=== PATIENT | male | born 1950 | race Caucasian/White ===

== ENCOUNTER 2021-02-18 14:10 | Inpatient (IN) ==
--- NOTE | 2021-02-18 14:19 | Emergency Department Note ---
Male Urogenital HPI General Chief complaint: Urogenital-Male Stated complaint: elevated creatinine, blocked catheter Time Seen by Provider: 02/18/21 14:19 Source: patient Mode of arrival: ambulatory Limitations: no limitations History of Present Illness HPI Narrative: Narrative: Patient is a pleasant 70-year-old male from [place], [place] who presents from [facility] ER by POV with complaint of urinary outlet obstruction. Patient has had complex recent history including finding of acute kidney injury with outlet obstruction requiring nephrostomy tubes which were placed temporarily and then ultimately with current Low catheter drainage. He was inpatient at [facility] from February 05 through February 09 and his creatinine was down to 9.6 with a high of 14. Patient has a prior history of transient A. fib and has been on a apixaban although has not had recurrent episodes of atrial fibrillation. He has been with some degree of anemia. He came back to the emergency department today as he had noted a pain down in his low abdomen 2 days ago and afterward has not had any drainage of urine from the catheter. At [facility] they found greater than the 1000 mL in the bladder. Patient notes bilateral flank moderate discomfort. He has not had any fever. There is not been any hematuria. He had been taking his apixaban up until today. No vomiting no chest pain. He notes itching over his skin which has improved since his creatinine came down. Related Data Home Medications Medication Instructions Recorded Confirmed apixaban 5 mg PO BID 02/18/21 02/18/21 calcium acetate 1,334 mg PO TID 02/18/21 02/18/21 ciprofloxacin HCl [Cipro] 250 mg PO DAILY 02/18/21 02/18/21 diltiazem HCl 240 mg PO QAM 02/18/21 02/18/21 levothyroxine 100 mcg PO QDAY 02/18/21 02/18/21 methocarbamol 500 mg PO Q6HP PRN 02/18/21 02/18/21 metoprolol succinate 100 mg PO QDAY 02/18/21 02/18/21 sodium bicarbonate 1,300 mg PO BID 02/18/21 02/18/21 Allergies Allergy/AdvReac Type Severity Reaction Status Date / Time No Known Drug Allergies Allergy Verified 02/18/21 14:15 Review of Systems ROS ROS Narrative: Narrative: A 10 system review of systems was performed and found to be negative except as outlined above. [facility] Narrative Patient History Narrative: Narrative: Medical/Surgical/Family History All Active Problems (Updated 02/19/21 @ 08:59 by Yogi Hernandez MD) Acute retention of urine (Acute) Acute kidney injury (Acute) Social History Smoking Status: Never smoker Exam Narrative Narrative: Narrative: General: Alert, interactive, pleasant male speaking full sentences without dyspnea HEENT: NCAT, PERRL, Oral pharynx with moist mucus membranes. No pharyngeal erythema. No conjunctival pallor Neck: Supple, No lymphadenopathy Chest: Stable Heart: Regular rate and rhythm without murmur Lungs: Clear to auscultation bilaterally Abdomen: Soft, nontender except with complaint of fullness in the suprapubic area. : Noted bladder distention, Low catheter in place which is without drainage. Back: Nontraumatic, mild bilateral CVA tenderness to palpation. Skin: No rash or lesion Extremity: No cyanosis or edema, pulses 2+ radial Neurologic: Moves all extremities in appropriate coordinated fashion. General Limitations: no limitations Course Vital Signs Vital signs: Vital Signs Temperature 98.1 F 02/18/21 14:11 Pulse Rate 66 02/18/21 14:11 Respiratory Rate 18 02/18/21 14:11 Blood Pressure 123/73 02/18/21 14:11 Pulse Oximetry (%) 99 02/18/21 14:11 Temperature 98.1 F 02/19/21 08:00 Pulse Rate 69 02/19/21 08:00 Respiratory Rate 16 02/19/21 08:00 Blood Pressure 105/59 02/19/21 08:00 Pulse Oximetry (%) 96 02/19/21 08:00 [facility] Narrative Medical decision making narrative: Narrative: I have reviewed the labs from [facility] noting patient's acute kidney injury which is slightly improved since his initial hospitalization almost 2 weeks ago. Patient is with greater than 2000 mL of urine in the bladder. I would consider doing a suprapubic urine catheterization except for his being on apixaban. Dr. Benton has kindly come directly to the emergency department when notified of patient's arrival with plan and discussion of doing further efforts at urine catheterization here in the emergency department. Disposition will be made based on success with procedure and consideration of his ongoing kidney injury. Dr. Benton was successful in placing the catheter. Given patient's elevating BUN and continued high creatinine in the risk of postobstructive diuresis, he will be admitted for further care and treatment with nephrology consultation. Lab Data Result diagrams: 02/19/21 05:46 02/19/21 05:46 ED POC Tests ED POC Tests: [place] - SARS Antigen Negative CC TIME Critical Care Time Critical Care Time: Yes Total Critical Care Time: 45 Attestation: In the care of this patient with acute urinary obstruction and postobstructive renal failure with elevating BUN and creatinine. This time is exclusive of separate billable procedure. Discharge Plan Patient/Caregiver Discharge Instructions Pt seen by [employer]/PA only: No Clinical Impression: Acute kidney injury, Acute retention of urine Patient Disposition: Xfer As Inpt ([facility]) Condition: Serious Discharge Date/Time: 02/18/21 19:54
[2021-02-18] MEDS ORDERED: HYDROmorphone 1 MG/ML SYRINGE IV ONE (15:23)
--- NOTE | 2021-02-18 16:03 | General Surgery Consult Note ---
HPI Data of Consult Consult date: 02/18/21 Primary Care Provider: Avelino Bautista Consult Narrative Patient Information: Note initiated : 02/18/21 at 3:49 pm Service Date, if different from initiated Date: [] Patient: Selwyn Gasca 70 y/o M admitted on for elevated creatinine, blocked catheter. Chief Complaint: [] Chief complaint: Urinary clot retention Reason for consult: Renal failure and transfer from the emergency room [place] cc:: Patient seen for her worsening renal failure and clot retention with Low catheter placement not draining. Patient has had history of chronic bladder outlet obstruction and recently had admission through [facility] for renal failure with bilateral nephrostomy tube placement. Both nephrostomy tubes fell out in the last several days and patient had difficult catheterization with urology at [facility] after finding of catheter being misplaced in the p rostatic urethra. Patient's had gross hematuria and greater than 2000 cc noted in the bladder by bladder scan at [facility] is now transferred for urologic care at [facility]. Patient also has chronic anemia as well as apparently continued blood loss with clot retention with hemoglobin now at 7.2 and creatinine 9.6. Patient now transferred for urologic and nephrologic care emergently EENT Eyes: Present other (Patient has history of head neck cancer last treatment 3 years ago-MYRANDA) Additional comments: History of head neck cancer last chemo radiation treatment 3 years ago and presently MYRANDA on recent PET CT imaging Gastrointestinal Gastrointestinal: Present other (History of chronic BPH) Genitourinary Genitourinary: other (Low catheter in place with no drainage) Additional comments: Bilateral hydronephrosis noted on recent imaging and now status post bilateral nephrostomy tube placement with inadvertent removal MEDS/ALLERGIES Home Medications and Allergies Allergies Allergy/AdvReac Type Severity Reaction Status Date / Time No Known Drug Allergies Allergy Verified 02/18/21 14:15 Physical Examination Vital Signs Vital signs: Temp Pulse Resp BP Pulse Ox 98.1 F 62 18 137/69 100 02/18/21 14:11 02/18/21 15:33 02/18/21 14:11 02/18/21 15:33 02/18/21 15:33 General physical appearance General physical exam: other (Thin white male in moderate distress) Abdomen Abdomen: Present tender (Jonny suprapubic tenderness with enlarged bladder) Genitourinary Genitourinary (Male): Present other (Low in place with no urine in the drainage bag) Musculoskeletal Musculoskeletal: Present other (Moderate CVA tenderness bilaterally) Results Labs Labs: All other labs normal. A/P Narrative A/P Narrative: Assessment: Renal failure with urinary retention likely secondary to clot but likely other etiology of failure BPH with prostate trauma and false passages noted on prior urologic evaluation cystoscopically Anemia questionably secondary to clot retention versus renal failure History of bilateral hydronephrosis and past nephrostomy tube placement no longer present History of chronic anticoagulation secondary to likely atrial fibrillation by history Plan/procedure: Difficult catheterization performed--new catheter placed over wire using [place] tip catheter 22 [place] and small clot removed with greater than 2500 cc urine recovered Patient had 0.5 cc Dilaudid used IV push and tolerated procedure well Light blood-tinged urine noted and will continue to observe for postobstructive diuresis as well as more recurrent clot formation and retention. will initiate IV replacement therapy with half-normal saline Proceed with nephrology consultation Appreciate hospitalist management of this complicated but pleasant medical patient We will continue to follow as needed however at this point no surgical intervention likely pending decompression of upper tracts with Low alone Time Spent With Patient Time: Total time spent is greater than 50% in coordination of care (as documented) at patient's floor/unit and/or counseling patient:
[2021-02-18] MEDS ORDERED: 0.45 % SODIUM CHLORIDE 1,000 ML IV SCH (17:00)
--- NOTE | 2021-02-18 17:12 | Nephrology Consult Note ---
HPI Data of Consult Patient: known to practice within the last 3 years Consult date: 02/18/21 Requesting physician: Basim Benton Primary Care Provider: Avelino Bautista Consult Narrative Patient Information: Note initiated : 02/18/21 at 5:10 pm Patient: Selwyn Gasca 70 y/o M admitted on for elevated creatinine, blocked catheter. 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 He was recently admitted to [facility] (02/05/21 to 02/09/21) for obstructive nephropathy. Low was placed with a flexible bedside cystoscopy by urology. Bilateral nephrostomy was placed on 02/08/21 by IR. There was no significant improvement in renal clearance after nephrostomy tubes. Acute hemodialysis initiation recommended for eGFR ~5 with uremic symptoms. Renal replacement therapy options with risks and benefits discussed. He was aware of very limited life expectancy without hemodialysis. He declined hemodialysis and was discharged home. He presented to ED today for the Low catheter not draining. Both nephrostomy tubes fell out in the last several days. Difficult catheterization performed and new catheter placed by urology. Small clot removed with greater than 2500 cc urine recovered. Chief complaint: Low catheter not draining Reason for consult: Acute kidney injury cc:: CC: Constitutional Constitutional: Present fatigue and weakness EENT Nose, mouth and throat: Absent nasal congestion and sore throat Cardiovascular Cardiovascular: Absent chest pain and edema Respiratory Respiratory: Absent dyspnea and wheezing Gastrointestinal Gastrointestinal: Absent constipation, diarrhea, nausea and vomiting Genitourinary Genitourinary: difficulty urinating and hematuria Integumentary Integumentary: Absent rash and wounds Neurological Neurological: Present weakness; Absent confusion Psychiatric Psychiatric: Absent anxiety and panic attacks Hematologic/Lymphatic Hematologic/Lymphatic: Absent easy bleeding Allergic/Immunologic Allergic/Immunologic: Absent tongue swelling and uticaria PFSH PFSH All Active Problems (Updated 02/18/21 @ 17:11 by Sundeep Soliman MD) Acute kidney injury (Acute) MEDS/ALLERGIES Home Medications and Allergies Home Medications Medication Instructions Recorded Confirmed Type apixaban 5 mg PO BID 02/18/21 02/18/21 History calcium acetate 1,334 mg PO TID 02/18/21 02/18/21 History diltiazem HCl 240 mg PO QAM 02/18/21 02/18/21 History levothyroxine 50 mcg PO QDAY 02/18/21 02/18/21 History metoprolol tartrate 100 mg PO BID 02/18/21 02/18/21 History prednisone 20 mg PO QDAY 02/18/21 02/18/21 History sodium bicarbonate 1,300 mg PO BID 02/18/21 02/18/21 History Allergies Allergy/AdvReac Type Severity Reaction Status Date / Time No Known Drug Allergies Allergy Verified 02/18/21 14:15 Physical Examination Vital Signs Vital signs: Temp Pulse Resp BP Pulse Ox 98.1 F 70 18 149/57 99 02/18/21 14:11 02/18/21 16:02 02/18/21 14:11 02/18/21 16:32 02/18/21 16:02 General Appearance General appearance: chronically ill and fatigue EENT EENT: mucous membranes moist Neck Neck: no JVD Respiratory Respiratory: clear Cardiovascular Cardiology: no edema, regular rate and regular rhythm Gastrointestinal Gastrointestinal: no tenderness Integumentary Integumentary: no rash Neurologic Neurologic: no focal deficit and alert and oriented x3 Musculoskeletal Musculoskeletal: no deformities Psychiatric Psychiatric: mood/affect appropriate and cooperative A/P Assessment and plan (1) Acute kidney injury: Assessment and plan: Selwyn Gasca is a 70-year-old male with a 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 He was recently admitted to [facility] (02/05/21 to 02/09/21) for obstructive nephropathy. Low was placed with a flexible bedside cystoscopy by urology. Bilateral nephrostomy was placed on 02/08/21 by IR. There was no significant improvement in renal clearance after nephrostomy tubes. Acute hemodialysis initiation recommended for eGFR ~5 with uremic symptoms. Renal replacement therapy options with risks and benefits discussed. He was aware of very limited life expectancy without hemodialysis. He declined hemodialysis and was discharged home. He presented to ED today for the Low catheter not draining. Both nephrostomy tubes fell out in the last several days. Difficult catheterization performed and new catheter placed by urology. Small clot removed with greater than 2500 cc urine recovered. Acute kidney injury associated with severe bilateral hydronephrosis (recurrent episodes), suspected progression to chronic kidney disease, even end stage renal disease. Previous work up: Labs on 02/12/12: Serum sodium 138, potassium 4.6, CO2 22, creatinine 9.75, eGFR 5, calcium 6.6, albumin 3.2. Labs on 02/09/21: Serum sodium 138, potassium 4.6, CO2 19, creatinine 9.6, eGFR 5, calcium 6.2. Renal US on 02/07/21: There is massive hydronephrosis bilaterally. Labs on 02/06/21: Hemoglobin 7.9, TIBC 48%, ferritin 648. Labs on 02/05/21: Urinalysis yellow, turbid, pH 5.0, SG 1.009, protein 100, blood >1.0, leukocyte esterase 500. Recommendations/Plan: Monitor for acute hemodialysis need. Avoid NSAIDs, nephrotoxic medications and IV contrast. Monitor BMP and urine output. Status: Acute Time Spent With Patient Time: Total time spent is greater than 50% in coordination of care (as documented) at patient's floor/unit and/or counseling patient:
--- NOTE | 2021-02-18 17:27 | Internal Medicine Consult Note ---
HPI Data of Consult Primary Care Provider: Avelino Buatista Consult Narrative Patient Information: Note initiated : 02/18/21 at 5:15 pm Service Date, if different from initiated Date: [] Patient: Selwyn Gasca 70 y/o M admitted on for elevated creatinine, blocked catheter. Chief Complaint: [] cc:: CC: Patient sent in from [place] for urinary obstruction. Sounds like he had a clotted off Berkowitz catheter and subsequent required urostomy tubes which fell out a few days ago resulting in clotted Berkowitz catheter again and urinary tension at which time he came back to the ED and was transferred to [facility] with Dr. Benton placed a Berkowitz catheter with good urine output. See Dr. Benton's note for details of this history. He was also seen at [facility] by the fitness coach for creatinine that has been elevated around 9 for some time he has anemia has been relatively stable. The last hemoglobin is 8.0 on February 11. 7.2 today. He does have gross hematuria. Review of Systems: Pertinent positive as above. Denies headache/fever/chills/nausea/vomiting/chest or abdominal pain/cough/dyspnea/diarrhea. Many 10 point review of system reviewed negative PFSH PFSH All Active Problems (Updated 02/18/21 @ 17:11 by Sundeep Soliman MD) Acute kidney injury (Acute) MEDS/ALLERGIES Home Medications and Allergies Home Medications Medication Instructions Recorded Confirmed Type apixaban 5 mg PO BID 02/18/21 02/18/21 History calcium acetate 1,334 mg PO TID 02/18/21 02/18/21 History diltiazem HCl 240 mg PO QAM 02/18/21 02/18/21 History levothyroxine 50 mcg PO QDAY 02/18/21 02/18/21 History metoprolol tartrate 100 mg PO BID 02/18/21 02/18/21 History prednisone 20 mg PO QDAY 02/18/21 02/18/21 History sodium bicarbonate 1,300 mg PO BID 02/18/21 02/18/21 History Allergies Allergy/AdvReac Type Severity Reaction Status Date / Time No Known Drug Allergies Allergy Verified 02/18/21 14:15 EXAM Constitutional Vitals: Temp Pulse Resp BP Pulse Ox 98.1 F 70 18 149/57 99 02/18/21 14:11 02/18/21 16:02 02/18/21 14:11 02/18/21 16:32 02/18/21 16:02 Exam: General: Alert, Awake, No acute Distress Eyes/N/T: EOMI, PERRL, Head/Neck: neck supple, normocephalic atraumatic CV: RRR, No murmurs, normal s1/s2 Pulm: Clear b/l, no wheezing/rhonchi/rales Abd: soft, nontender, +BS x4 : Berkowitz in place with gross hematuria Ext: no clubbing/cyanosis/edema Neuro: Alert, no focal deficits, moves all extremities, CN 2-12 grossly intact, symmetrical strength b/l upper/lower, sensations intact b/l upper/lower Skin: warm/dry A/P Narrative A/P Narrative: A: *Obstructive uropathy and b/l hydronephrosis: 2/2 clots, recent nephrostomy tube fell out -BPH with subsequent prostate trauma *Gross hematuria with blood clots: was on apixaban *Blood loss (mild) anemia from above plus likely chronic component from renal failure: -Anemia work-up at [facility] indicates anemia of chronic disease -relatively stable, was 8 February 11, now 7.2 *Renal Failure: 2/2 above *Afib: on dilt/bb and was on apixaban that has been held for above *HTN: *Hypothyroidism: last labs quite high TSH and low T4, ?levothyroxine increased from 50-100 at [facility] * P: -Obstructive uropathy per urology, s/p berkowitz replacement (02/18) -renal failure per nephrology -will check b12/folate -hold apixaban for now -continue levothyroxine, will need f/u and likely titration up outpt -blood transfusion, monitor H&H -cont nicko dilt/bb -?prednisone on home meds -clarify home meds -ppx: scd DNR Time Spent With Patient Time: Total time spent is greater than 50% in coordination of care (as documented) at patient's floor/unit and/or counseling patient:
[2021-02-18] MEDS ORDERED: 0.9 % SODIUM CHLORIDE 250 ML IV SCH (20:03)
[2021-02-18] MEDS ORDERED: DILTIAZEM 240 MG CAP.XL.24H PO ONE (20:03)
[2021-02-18] MEDS ORDERED: METOPROLOL TARTRATE 5 MG/5 ML VIAL IV PRN (20:12)
[2021-02-18] MEDS: 0.45 % SODIUM CHLORIDE 1,000 ML IV SCH (20:29)
[2021-02-18] MEDS: METOPROLOL TARTRATE 50 MG TABLET PO SCH (20:41)
[2021-02-18] MEDS: SODIUM BICARBONATE 650 MG TABLET PO SCH (20:41)
[2021-02-18] MEDS: CALCIUM ACETATE 667 MG CAPSULE PO SCH (20:41)
[2021-02-19] MEDS: 0.45 % SODIUM CHLORIDE 1,000 ML IV SCH ×4 (01:43→19:39)
--- NOTE | 2021-02-19 04:06 | Ultrasound Report ---
CLINICAL INFORMATION: renal failure with hx bilateral hydronephrosis COMPARISON: 02/07/2021 FINDINGS: Both kidneys are normal in size position and configuration: The right is 12.4 x 4.9 cm. The left is 12 x 6.6 cm. Echotexture is mildly elevated bilaterally. No focal renal lesions. Severe bilateral hydronephrosis is persistent. Urinary bladder is decompressed by Low catheter. The bladder stone, seen on recent ultrasound is not identified. However, there appears to be marked prostate enlargement with possible mass originating from or adjacent to the prostate IMPRESSION: Severe bilateral hydronephrosis despite Low catheter decompression of the urinary bladder. There is either atypical prostate enlargement or adjacent vascular mass. Suggest: abdomen and pelvic CT. It could be performed without contrast. Creatinine is elevated Interpreted and Authenticated by: Ishaan Pascal 02/19/21
[2021-02-19 06:58] LABS: Basophils # (Auto) 0.08 K/mcL (0.00-0.20); Basophils % (Auto) 0.9 % (0.0-2.0); Eosinophils # (Auto) 1.23 K/mcL (0.00-0.70); Eosinophils % (Auto) 13.2 % (0.0-7.0); Hematocrit 26.6 % (41.0-55.0); Hemoglobin 8.4 g/dL (13.5-16.5); Lymphocytes # (Auto) 0.44 K/mcL (1.50-4.80); Lymphocytes % (Auto) 4.7 % (15.0-49.0); Mean Cell Volume 99.3 fL (80.0-100.0); Mean Corpuscular HGB Conc 31.6 g/dL (31.0-36.0); Mean Platelet Volume 8.9 fL (7.4-10.4); Monocytes # (Auto) 0.91 K/mcL (0.10-0.90); Monocytes % (Auto) 9.8 % (1.0-12.0); Neutrophils % (Auto) 71.4 % (38.0-78.0); Platelet Count 339 K/mcL (140-440); RBC 2.68 M/mcL (4.50-5.90); Red Cell Distribution Width 15.7 % (11.5-14.5); WBC 9.3 K/mcL (4.5-11.0)
[2021-02-19] MEDS: LEVOTHYROXINE 50 MCG TABLET PO SCH (07:12)
--- NOTE | 2021-02-19 07:27 | Internal Med Progress Note ---
SUBJECTIVE Subjective Patient information: Note initiated : 02/19/21 at 7:24 am Service Date, if different from initiated Date: [] Patient: Selwyn Gasca 70 y/o M admitted on 02/18/21 for elevated creatinine, blocked catheter. Chief Complaint: [] Interval history: Patient sent in from [place] for urinary obstruction. Sounds like he had a clotted off Berkowitz catheter and subsequent required urostomy tubes which fell out a few days ago resulting in clotted Berkowitz catheter again and urinary tension at which time he came back to the ED and was transferred to [facility] with Dr. Benton placed a Berkowitz catheter with good urine output. See Dr. Benton's note for details of this history. He was also seen at [facility] by the sports medicine coordinator for creatinine that has been elevated around 9 for some time he has anemia has been relatively stable. The last hemoglobin is 8.0 on February 11. 7.2 today. He does have gross hematuria. 02/19 No overnight event or new complaints. Patient was recently diagnosed with hypothyroidism at [facility] and started on 100 mcg of levothyroxine. Review of Systems: denies headache/fever/chills/nausea/vomiting/chest or abdominal pain/cough/dyspnea/diarrhea. Otherwise see above. Constitutional Vitals: Vital Signs Temp Pulse Resp BP Pulse Ox 98.1 F 53 L 16 107/63 98 02/19/21 01:53 02/19/21 01:53 02/19/21 01:53 02/19/21 01:53 02/19/21 01:53 Period Temp Pulse Resp BP Sys/Gomes Pulse Ox Last 24 Hr 98.0 F-98.4 F 52-70 16-18 107-149/57-73 97-100 Intake and Output 02/18/21 02/19/21 02/19/21 21:59 05:59 13:59 Intake Total 277 1169 483 Output Total 2950 825 Balance -2673 344 483 Weight 74.446 kg Intake & Output: Intake & Output 02/18/21 02/19/21 02/19/21 21:59 05:59 13:59 Intake Total 277 1169 483 Output Total 2950 825 Balance -2673 344 483 Weight 74.446 kg Intake: IV 277 864 483 Sodium Chloride 0.45% 1,000 ml 277 839 483 @ 100 mls/hr IV .Q10H [facility] Rx#: [id number] Sodium Chloride 0.9% 250 ml @ 25 20 mls/hr IV .[id number] [facility] Rx#: [id number] Blood Product 305 Output: Urine Catheter Amount 1860 825 Other: Urine Appearance Clear Hematuria Hematuria Urine Color Blood Tinged [place] Exam: General: Alert, Awake, No acute Distress Eyes/N/T: EOMI, , Head/Neck: neck supple, CV: RRR, No murmurs, normal s1/s2 Pulm: Clear b/l, no wheezing/rhonchi/rales Abd: soft, nontender, +BS x4 : Berkowitz in place Ext: no clubbing/cyanosis/edema Neuro: Alert, no focal deficits, moves all extremities, Skin: warm/dry OBJ DATA Labs CBC & Chem 7: 02/19/21 05:46 02/19/21 05:46 Labs: Abnormal Lab Results 02/19/21 05:46 RBC 2.68 L Hgb 8.4 L Hct 26.6 L RDW 15.7 H Lymph % (Auto) 4.7 L Eos % (Auto) 13.2 H Lymph # (Auto) 0.44 L [place] # (Auto) 0.91 H Eos # (Auto) 1.23 H Meds: Medications Calcium Acetate (Calcium Acetate 667 Mg Capsule) 1,334 mg PO TIDCC [facility] Last Admin: 02/18/21 20:41 Dose: 1,334 mg Documented by: Sodium Chloride (Sodium Chloride 0.45%) 1,000 mls @ 100 mls/hr IV .Q10H [facility] Last Admin: 02/19/21 06:56 Dose: 175 mls/hr Documented by: Sodium Chloride (Sodium Chloride 0.9%) 250 mls @ 20 mls/hr IV .[id number] [facility] Stop: 02/19/21 08:32 Last Infusion: 02/19/21 01:43 Dose: Infused Documented by: Levothyroxine Sodium (Levothyroxine 50 Mcg Tablet) 100 mcg PO QAMAC [facility] Last Admin: 02/19/21 07:12 Dose: 100 mcg Documented by: Metoprolol Tartrate (Metoprolol Tartrate 50 Mg Tablet) 100 mg PO BID [facility] Last Admin: 02/18/21 20:41 Dose: 100 mg Documented by: Metoprolol Tartrate (Metoprolol Tartrate 5 Mg/5 Ml Vial) 5 mg IV Q2HP PRN PRN Reason: Tachyarrhythmias HR>110 Sodium Bicarbonate (Sodium Bicarbonate 650 Mg Tablet) 1,300 mg PO BID [facility] Last Admin: 02/18/21 20:41 Dose: 1,300 mg Documented by: A/P Narrative A/P Narrative: A: *Obstructive uropathy and b/l hydronephrosis: 2/2 clots, recent nephrostomy tube fell out -BPH with subsequent prostate trauma *Gross hematuria with blood clots: was on apixaban -improved *Blood loss (mild) anemia from above plus likely chronic component from renal failure: -Anemia work-up at [facility] indicates anemia of chronic disease -relatively stable, was 8 February 11, now 7.2 -good response from 1 unit PRBC (02/18) *Renal Failure: 2/2 above -Cr no change *Afib: on dilt/bb and was on apixaban that has been held for above *HTN: *Hypothyroidism: recently diagnosed at [facility] and started on levothyroxine 100mcg * P: -Obstructive uropathy s/p berkowitz replacement (02/18), per urology -renal failure per nephrology -will check b12/folate -apixaban held for now -continue levothyroxine, will need f/u and likely titration up outpt -monitor H&H -hold dilt/bb for mild bradycardia -ppx: scd DNR Time Spent With Patient Time: Total time spent is greater than 50% in coordination of care (as documented) at patient's floor/unit and/or counseling patient: QUALITY VTE Deep Vein Thrombosis/Pulmonary Embolism Present on Admission: No
--- NOTE | 2021-02-19 07:56 | General Surgery Progress Note ---
SUBJECTIVE Subjective Patient information: Note initiated : 02/19/21 at 7:52 am Service Date, if different from initiated Date: [] Patient: Selwyn Gasca 70 y/o M admitted on 02/18/21 for elevated creatinine, blocked catheter. Chief Complaint: [] Interval history: Patient presently doing well and eating in no distress Constitutional Vitals: Vital Signs Temp Pulse Resp BP Pulse Ox 98.1 F 53 L 16 107/63 98 02/19/21 01:53 02/19/21 01:53 02/19/21 01:53 02/19/21 01:53 02/19/21 01:53 Period Temp Pulse Resp BP Sys/Gomes Pulse Ox Last 24 Hr 98.0 F-98.4 F 52-70 16-18 107-149/57-73 97-100 Intake and Output 02/18/21 02/19/21 02/19/21 21:59 05:59 13:59 Intake Total 277 1169 483 Output Total 2950 825 Balance -2673 344 483 Weight 164 lb 2 oz Intake & Output: Intake & Output 02/18/21 02/19/21 02/19/21 21:59 05:59 13:59 Intake Total 277 1169 483 Output Total 2950 825 Balance -2673 344 483 Weight 164 lb 2 oz Intake: IV 277 864 483 Sodium Chloride 0.45% 1,000 ml 277 839 483 @ 100 mls/hr IV .Q10H [facility] Rx#: [id number] Sodium Chloride 0.9% 250 ml @ 25 20 mls/hr IV .[id number] [facility] Rx#: [id number] Blood Product 305 Output: Urine Catheter Amount 2950 825 Other: Urine Appearance Clear Hematuria Hematuria Urine Color Blood Tinged [place] Additional findings Additional findings: Patient alert and cooperative afebrile Chest normal diaphragmatic excursion with no shortness of breath Cardiac palpably normal rhythm Abdomen nontender nondistended with no CVA tenderness Low catheter in place draining clear urine No pedal edema noted A/P Narrative A/P Narrative: Assessment: Renal failure questionably stable and awaiting a.m. repeat creatinine level as well as thyroid and vitamin B12 levels Anemia improved with hemoglobin 8.4 this a.m. Comfortable with no cardiac arrhythmias noted overnight off anticoagulation Plan: Await hospitalist and nephrology evaluation this morning and question proceeding with repeat imaging based on ultrasound showing dramatic bilateral hydronephrosis and questionable bladder base mass Consider cystoscopy pending clinical status Continue fluid management with urine replacement and hopefully overall replacement without IV if maintained stability Time Spent With Patient Time: Total time spent is greater than 50% in coordination of care (as documented) at patient's floor/unit and/or counseling patient:
[2021-02-19] MEDS ORDERED: predniSONE 20 MG TABLET PO SCH (08:00)
[2021-02-19] MEDS: SODIUM BICARBONATE 650 MG TABLET PO SCH ×2 (08:19→21:41)
[2021-02-19] MEDS: CALCIUM ACETATE 667 MG CAPSULE PO SCH ×3 (08:19→17:22)
[2021-02-19] MEDS: METOPROLOL TARTRATE 50 MG TABLET PO SCH ×2 (08:19→21:46)
[2021-02-19 08:24] LABS: Free T3 0.9 pg/mL (2.0-4.4); T4 (Thyroxine) 2.7 ug/dl (5.0-12.0); Thyroid Stimulating Hormone > 100 uIU/mL (0.27-5.01)
[2021-02-19 08:53] LABS: ALT/SGPT 14 U/L (<40); AST/SGOT 13 U/L (<40); Albumin 3.3 gm/dL (3.2-5.2); Albumin/Globulin Ratio 1.3 (1.0-2.3); Alkaline Phosphatase 46 U/L (39-117); Bilirubin,Total 0.4 mg/dL (0.1-1.0); Blood Urea Nitrogen 108 mg/dL (8-23); Calcium 6.3 mg/dL (8.6-10.4); Carbon Dioxide 23 mmol/L (22-30); Chloride 104 mmol/L (96-108); Globulin 2.6 gm/dL (2.2-3.7); Glomerular Filtration Rate 5; Glucose 70 mg/dL (70-105)
[2021-02-19] MEDS ORDERED: METHOCARBAMOL 500 MG TABLET PO PRN (09:02)
--- NOTE | 2021-02-19 09:35 | EKG ---
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 Measurements Intervals [place] Rate: 46 P: 49 ND: 196 QRS: 29 QRSD: 86 T: 19 QT: 532 QTc: 466 Interpretive Statements SINUS BRADYCARDIA LOW VOLTAGE IN FRONTAL LEADS CONSIDER ANTEROSEPTAL INFARCT Electronically Signed On 02-19-2021 13:16:34 PDT by Akhil Chand M.D. /[email or web address]/[email or web address]/[id number]
--- NOTE | 2021-02-19 09:38 | Nephrology Progress Note ---
SUBJECTIVE Subjective Patient information: Note initiated : 02/19/21 at 9:37 am Patient: Selwyn Gasca 70 y/o M admitted on 02/18/21 for elevated creatinine, blocked catheter. Chief Complaint: Low catheter not draining Pertinent ROS: Feeling better Low catheter Denies nausea or hiccups Constitutional Vitals: Vital Signs Temp Pulse Resp BP Pulse Ox 98.1 F 69 16 105/59 96 02/19/21 08:00 02/19/21 08:00 02/19/21 08:00 02/19/21 08:00 02/19/21 08:00 Period Temp Pulse Resp BP Sys/Gomes Pulse Ox Last 24 Hr 98.0 F-98.4 F 52-70 16-18 105-149/57-73 96-100 Intake and Output 02/18/21 02/19/21 02/19/21 21:59 05:59 13:59 Intake Total 277 1169 871 Output Total 2950 825 400 Balance -2673 344 471 Weight 164 lb 2 oz Intake & Output: Intake & Output 02/18/21 02/19/21 02/19/21 21:59 05:59 13:59 Intake Total 277 1169 871 Output Total 2950 825 400 Balance -2673 344 471 Weight 164 lb 2 oz Intake: IV 277 864 751 Sodium Chloride 0.45% 1,000 ml 277 839 751 @ 100 mls/hr IV .Q10H [facility] Rx#: [id number] Sodium Chloride 0.9% 250 ml @ 25 20 mls/hr IV .[id number] [facility] Rx#: [id number] Oral 120 Blood Product 305 Output: Urine Catheter Amount 2950 825 400 Other: Meal Breakfast Percent of Meal Consumed 100% Feeding Ability Independent Urine Appearance Clear Hematuria Clear Hematuria Urine Color Blood Tinged [place] Pale General appearance: cooperative and no acute distress Head Head exam: Present normal inspection Eye Eye exam: Present normal appearance ENT ENT exam: Present mucous membranes moist Respiratory Respiratory exam: Absent respiratory distress Cardiovascular Cardiovascular exam: Present normal rate and rhythm GI/Abdominal GI/Abdominal exam: Present soft; Absent tenderness Extremities Exam Extremities exam: Absent joint swelling and pedal edema Neurological Exam Neurological exam: Present alert and oriented X3 Psychiatric Psychiatric exam: Present normal affect and normal mood Skin Skin exam: Present warm; Absent rash A/P Assessment and plan (1) Acute kidney injury: Assessment and plan: Selwyn Gasca is a 70-year-old male with a 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 He was recently admitted to [facility] (02/05/21 to 02/09/21) for obstructive nephropathy. Low was placed with a flexible bedside cystoscopy by urology. Bilateral nephrostomy was placed on 02/08/21 by IR. There was no significant improvement in renal clearance after nephrostomy tubes. Acute hemodialysis initiation recommended for eGFR ~5 with uremic symptoms. Renal replacement thera py options with risks and benefits discussed. He was aware of very limited life expectancy without hemodialysis. He declined hemodialysis and was discharged home. He presented to [facility] ED on 02/18/21 for the Low catheter not draining. Both nephrostomy tubes fell out since discharge from [facility]. Difficult catheterization performed and new catheter placed by urology in ED. Small clot removed with greater than 2500 cc urine recovered and he is admitted. Acute kidney injury associated with severe bilateral hydronephrosis (recurrent episodes), suspected progression to chronic kidney disease, even end stage renal disease. Previous work up: Labs on 02/12/12: Serum sodium 138, potassium 4.6, CO2 22, creatinine 9.75, eGFR 5, calcium 6.6, albumin 3.2. Labs on 02/09/21: Serum sodium 138, potassium 4.6, CO2 19, creatinine 9.6, eGFR 5, calcium 6.2. Renal US on 02/07/21: There is massive hydronephrosis bilaterally. Labs on 02/06/21: Hemoglobin 7.9, TIBC 48%, ferritin 648. Labs on 02/05/21: Urinalysis yellow, turbid, pH 5.0, SG 1.009, protein 100, blood >1.0, leukocyte esterase 500. Work up: Renal US on 02/18/21: Severe bilateral hydronephrosis despite Low catheter decompression of the urinary bladder. Progress: Serum creatinine decreased from 9.6 to 9.7 to 9.2 overnight. Baseline serum creatinine: Urine output: 3,775 ml reported overnight. No fluid overload. No significant uremic symptoms. Recommendations/Plan: No urgent acute hemodialysis need. Avoid NSAIDs, nephrotoxic medications and IV contrast. Monitor BMP and urine output. Status: Acute Time Spent With Patient Time: Total time spent is greater than 50% in coordination of care (as documented) at patient's floor/unit and/or counseling patient:
[2021-02-19] MEDS ORDERED: METOPROLOL TARTRATE 50 MG TABLET PO SCH (21:49)
[2021-02-20] MEDS: 0.45 % SODIUM CHLORIDE 1,000 ML IV SCH ×2 (02:33→07:21)
[2021-02-20] MEDS: METOPROLOL TARTRATE 50 MG TABLET PO SCH (06:35)
[2021-02-20] MEDS: LEVOTHYROXINE 50 MCG TABLET PO SCH (07:14)
--- NOTE | 2021-02-20 07:16 | Internal Med Progress Note ---
SUBJECTIVE Subjective Patient information: Note initiated : 02/20/21 at 7:13 am Service Date, if different from initiated Date: [] Patient: Selwyn Gasca 70 y/o M admitted on 02/18/21 for elevated creatinine, blocked catheter. Chief Complaint: [] Interval history: Patient sent in from [place] for urinary obstruction. Sounds like he had a clotted off Berkowitz catheter and subsequent required urostomy tubes which fell out a few days ago resulting in clotted Berkowitz catheter again and urinary tension at which time he came back to the ED and was transferred to [facility] with Dr. Benton placed a Berkowitz catheter with good urine output. See Dr. Benton's note for details of this history. He was also seen at [facility] by the credit office manager for creatinine that has been elevated around 9 for some time he has anemia has been relatively stable. The last hemoglobin is 8.0 on February 11. 7.2 today. He does have gross hematuria. 02/19 No overnight event or new complaints. Patient was recently diagnosed with hypothyroidism at [place] and started on 100 mcg of levothyroxine. 02/20 Doing well. No pains or complaints. Pending a.m. labs. Review of Systems: denies headache/fever/chills/nausea/vomiting/chest or abdominal pain/cough/dyspnea/diarrhea. Otherwise see above. Constitutional Vitals: Vital Signs Temp Pulse Resp BP Pulse Ox 98.6 F 54 L 12 116/62 98 02/20/21 02:41 02/20/21 04:55 02/20/21 04:55 02/20/21 04:55 02/20/21 04:55 Period Temp Pulse Resp BP Sys/Gomes Pulse Ox Last 24 Hr 97.8 F-98.6 F 50-69 12-20 105-129/48-62 96-100 Intake and Output 02/19/21 02/20/21 02/20/21 21:59 05:59 13:59 Intake Total 1065 1340 Output Total 575 750 Balance 490 590 Weight 78.698 kg 77.292 kg Intake & Output: Intake & Output 02/19/21 02/20/21 02/20/21 21:59 05:59 13:59 Intake Total 1065 1340 Output Total 575 750 Balance 490 590 Weight 78.698 kg 77.292 kg Intake: IV 1065 990 Sodium Chloride 0.45% 1,000 ml 1065 990 @ 100 mls/hr IV .Q10H [facility] Rx#: [id number] Oral 350 Output: Urine Catheter Amount 575 750 Other: Urine Appearance Clear Clear Urine Color Straw Straw Stool Size Large Stool Color Brown Stool Consistency Formed Loose Exam: General: Alert, Awake, No acute Distress Eyes/N/T: EOMI, , Head/Neck: neck supple, CV: RRR, No murmurs, normal s1/s2 Pulm: Clear b/l, no wheezing/rhonchi/rales Abd: soft, nontender, +BS x4 : Berkowitz in place Ext: no clubbing/cyanosis/edema Neuro: Alert, no focal deficits, moves all extremities, Skin: warm/dry OBJ DATA Labs CBC & Chem 7: 02/20/21 06:21 02/19/21 05:46 Labs: Abnormal Lab Results 02/19/21 02/19/21 05:46 05:46 RBC 2.68 L Hgb 8.4 L Hct 26.6 L RDW 15.7 H Lymph % (Auto) 4.7 L Eos % (Auto) 13.2 H Lymph # (Auto) 0.44 L [place] # (Auto) 0.91 H Eos # (Auto) 1.23 H BUN 108 H* Creatinine 9.2 H* Calcium 6.3 L TSH > 100 H Thyroxine (T4) 2.7 L Free T3 pg/mL 0.9 L Meds: Medications Calcium Acetate (Calcium Acetate 667 Mg Capsule) 1,334 mg PO TIDCC [facility] Last Admin: 02/19/21 17:22 Dose: 1,334 mg Documented by: Sodium Chloride (Sodium Chloride 0.45%) 1,000 mls @ 100 mls/hr IV .Q10H [facility] Last Infusion: 02/20/21 03:58 Dose: 250 mls/hr Documented by: Levothyroxine Sodium (Levothyroxine 50 Mcg Tablet) 100 mcg PO QAMAC [facility] Last Admin: 02/19/21 07:12 Dose: 100 mcg Documented by: Methocarbamol (Methocarbamol 500 Mg Tablet) 500 mg PO Q6HP PRN PRN Reason: Muscle Spasm Metoprolol Tartrate (Metoprolol Tartrate 5 Mg/5 Ml Vial) 5 mg IV Q2HP PRN PRN Reason: Tachyarrhythmias HR>110 Metoprolol Tartrate (Metoprolol Tartrate 50 Mg Tablet) 100 mg PO BID [facility] Sodium Bicarbonate (Sodium Bicarbonate 650 Mg Tablet) 1,300 mg PO BID [facility] Last Admin: 02/19/21 21:41 Dose: 1,300 mg Documented by: A/P Narrative A/P Narrative: A: *Obstructive uropathy and b/l hydronephrosis: 2/2 clots, recent nephrostomy tube fell out -BPH with subsequent prostate trauma *Gross hematuria with blood clots: was on apixaban -improved *Blood loss (mild) anemia from above plus likely chronic component from renal failure: -Anemia work-up at [facility] indicates anemia of chronic disease -relatively stable, was 8 February 11, now 7.2 -good response from 1 unit PRBC (02/18) *Renal Failure: 2/2 above -Cr *PAF: currently in sinus valentino -on dilt/bb. was on apixaban that has been held for above *HTN: *Hypothyroidism: recently diagnosed at [facility] and started on levothyroxine 100mcg * P: -Obstructive uropathy s/p berkowitz replacement (02/18), per urology -renal failure per nephrology -apixaban restart tomorrow -continue levothyroxine, will need f/u and likely titration up outpt -hold dilt/bb for mild bradycardia, -ppx: scd DNR Time Spent With Patient Time: Total time spent is greater than 50% in coordination of care (as docu mented) at patient's floor/unit and/or counseling patient: QUALITY VTE Deep Vein Thrombosis/Pulmonary Embolism Present on Admission: No
[2021-02-20 07:53] LABS: Basophils # (Auto) 0.07 K/mcL (0.00-0.20); Basophils % (Auto) 0.9 % (0.0-2.0); Eosinophils % (Auto) 15.1 % (0.0-7.0); Hematocrit 26.3 % (41.0-55.0); Lymphocytes # (Auto) 0.48 K/mcL (1.50-4.80); Mean Cell Volume 105.2 fL (80.0-100.0); Mean Corpuscular HGB Conc 30.4 g/dL (31.0-36.0); Mean Platelet Volume 8.7 fL (7.4-10.4); Monocytes # (Auto) 0.75 K/mcL (0.10-0.90); Monocytes % (Auto) 9.4 % (1.0-12.0); Neutrophils % (Auto) 68.6 % (38.0-78.0); Platelet Count 301 K/mcL (140-440); Red Cell Distribution Width 15.4 % (11.5-14.5); WBC 7.9 K/mcL (4.5-11.0)
[2021-02-20 08:11] LABS: ALT/SGPT 12 U/L (<40); AST/SGOT 13 U/L (<40); Albumin 2.9 gm/dL (3.2-5.2); Albumin/Globulin Ratio 1.2 (1.0-2.3); Alkaline Phosphatase 43 U/L (39-117); Bilirubin,Total 0.2 mg/dL (0.1-1.0); Blood Urea Nitrogen 102 mg/dL (8-23); Calcium 5.9 mg/dL (8.6-10.4); Carbon Dioxide 18 mmol/L (22-30); Chloride 104 mmol/L (96-108); Globulin 2.4 gm/dL (2.2-3.7); Glomerular Filtration Rate 6; Glucose 74 mg/dL (70-105)
--- NOTE | 2021-02-20 08:25 | Nephrology Progress Note ---
SUBJECTIVE Subjective Patient information: Note initiated : 02/20/21 at 8:23 am Patient: Selwyn Gasca 70 y/o M admitted on 02/18/21 for elevated creatinine, blocked catheter. Chief Complaint: Low not draining Pertinent ROS: No nausea No hiccups No edema feeling better Constitutional Vitals: Vital Signs Temp Pulse Resp BP Pulse Ox 98.6 F 54 L 12 116/62 98 02/20/21 02:41 02/20/21 04:55 02/20/21 04:55 02/20/21 04:55 02/20/21 04:55 Period Temp Pulse Resp BP Sys/Gomes Pulse Ox Last 24 Hr 97.8 F-98.6 F 50-54 12-20 105-129/48-62 97-100 Intake and Output 02/19/21 02/20/21 02/20/21 21:59 05:59 13:59 Intake Total 1065 1340 823 Output Total 575 750 Balance 490 590 823 Weight 173 lb 8 oz 170 lb 6.4 oz Intake & Output: Intake & Output 02/19/21 02/20/21 02/20/21 21:59 05:59 13:59 Intake Total 1065 1340 823 Output Total 575 750 Balance 490 590 823 Weight 173 lb 8 oz 170 lb 6.4 oz Intake: IV 1065 990 823 Sodium Chloride 0.45% 1,000 ml 1065 990 823 @ 100 mls/hr IV .Q10H [facility] Rx#: [id number] Oral 350 Output: Urine Catheter Amount 575 750 Other: Urine Appearance Clear Clear Urine Color Straw Straw Stool Size Large Stool Color Brown Stool Consistency Formed Loose General appearance: cooperative and no acute distress Head Head exam: Present normal inspection Eye Eye exam: Present normal appearance ENT ENT exam: Present mucous membranes moist Respiratory Respiratory exam: Absent respiratory distress Cardiovascular Cardiovascular exam: Present normal rate and rhythm GI/Abdominal GI/Abdominal exam: Present soft; Absent tenderness Extremities Exam Extremities exam: Absent joint swelling and pedal edema Neurological Exam Neurological exam: Present alert and oriented X3 Psychiatric Psychiatric exam: Present normal affect and normal mood Skin Skin exam: Present warm; Absent rash A/P Assessment and plan (1) Acute kidney injury: Assessment and plan: Selwyn Gasca is a 70-year-old male with a 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 He was recently admitted to [facility] (02/05/21 to 02/09/21) for obstructive nephropathy. Low was placed with a flexible bedside cystoscopy by urology. Bilateral nephrostomy was placed on 02/08/21 by IR. There was no significant improvement in renal clearance after nephrostomy tubes. Acute hemodialysis initiation recommended for eGFR ~5 with uremic symptoms. Renal replacement therapy options with risks and benefits discussed. He was aware of very limited life expectancy without hemodialysis. He declined hemodialysis and was discharged home. He presented to [facility] ED on 02/18/21 for the Low catheter not draining. Both nephrostomy tubes fell out since discharge from [facility]. Difficult catheterization performed and new catheter placed by urology in ED. Small clot removed with greater than 2500 cc urine recovered and he is admitted. Acute kidney injury associated with severe bilateral hydronephrosis (recurrent episodes), suspected progression to chronic kidney disease, even end stage renal disease. Previous work up: Labs on 02/12/12: Serum sodium 138, potassium 4.6, CO2 22, creatinine 9.75, eGFR 5, calcium 6.6, albumin 3.2. Labs on 02/09/21: Serum sodium 138, potassium 4.6, CO2 19, creatinine 9.6, eGFR 5, calcium 6.2. Renal US on 02/07/21: There is massive hydronephrosis bilaterally. Labs on 02/06/21: Hemoglobin 7.9, TIBC 48%, ferritin 648. Labs on 02/05/21: Urinalysis yellow, turbid, pH 5.0, SG 1.009, protein 100, blood >1.0, leukocyte esterase 500. Work up: Renal US on 02/18/21: Severe bilateral hydronephrosis despite Low catheter decompression of the urinary bladder. Progress: Serum creatinine decreased from 9.2 to 8.0 in the past 24 hours. Urine output: 1,975 ml reported in the past 24 hours. Metabolic acidosis. receiving Sodium Bicarbonate 1,300 mg twice daily. No fluid overload. No significant uremic symptoms. Recommendations/Plan: No urgent acute hemodialysis need. Avoid NSAIDs, nephrotoxic medications and IV contrast. Monitor BMP and urine output. Outpatient nephrology follow up after discharge. Status: Acute Time Spent With Patient Time: Total time spent is greater than 50% in coordination of care (as documented) at patient's floor/unit and/or counseling patient:
[2021-02-20] MEDS: CALCIUM ACETATE 667 MG CAPSULE PO SCH ×2 (08:47→11:24)
[2021-02-20] MEDS: SODIUM BICARBONATE 650 MG TABLET PO SCH (08:47)
--- NOTE | 2021-02-20 08:52 | General Surgery Progress Note ---
SUBJECTIVE Subjective Patient information: Note initiated : 02/20/21 at 8:47 am Service Date, if different from initiated Date: [] Patient: Selwyn Gasca 70 y/o M admitted on 02/18/21 for elevated creatinine, blocked catheter. Chief Complaint: [] Interval history: Patient presently doing well and urine is remained clear Patient's oral intake has been adequate and need for IV replacement less likely Dietitian today to see regarding renal diet recommendations Constitutional Vitals: Vital Signs Temp Pulse Resp BP Pulse Ox 98.6 F 54 L 12 116/62 98 02/20/21 02:41 02/20/21 04:55 02/20/21 04:55 02/20/21 04:55 02/20/21 04:55 Period Temp Pulse Resp BP Sys/Gomes Pulse Ox Last 24 Hr 97.8 F-98.6 F 50-54 12-20 105-129/48-62 97-100 Intake and Output 02/19/21 02/20/21 02/20/21 21:59 05:59 13:59 Intake Total 1065 1340 823 Output Total 575 750 Balance 490 590 823 Weight 173 lb 8 oz 170 lb 6.4 oz Intake & Output: Intake & Output 02/19/21 02/20/21 02/20/21 21:59 05:59 13:59 Intake Total 1065 1340 823 Output Total 575 750 Balance 490 590 823 Weight 173 lb 8 oz 170 lb 6.4 oz Intake: IV 1065 990 823 Sodium Chloride 0.45% 1,000 ml 1065 990 823 @ 100 mls/hr IV .Q10H [facility] Rx#: [id number] Oral 350 Output: Urine Catheter Amount 575 750 Other: Urine Appearance Clear Clear Urine Color Straw Straw Stool Size Large Stool Color Brown Stool Consistency Formed Loose Additional findings Additional findings: Patient alert oriented cooperative--vital signs stable Abdomen soft with catheter in place draining clear urine No CVA tenderness A/P Narrative A/P Narrative: Assessment: Improving creatinine now down to 8.0 and electrolytes remaining normal with low calcium protein levels Hemoglobin stable CT demonstrates significant improvement in hydronephrosis and bladder calculus present but stable by report Internal medicine and nephrology management noted from earlier today Plan: Patient okay for discharge from urologic standpoint with Low catheter in place Drink to thirst as per nephrology and would emphasize need for telesales consultant to see you regarding renal diet with both patient and Follow-up with Dr. Willett urology at [facility] as planned in March for management of his bladder stone pending any problems in the interim Emphasize need to follow-up with nephrology as outpatient and hopefully be able to avoid dialysis for as long as possible Likely long-term catheter drainage will be required Time Spent With Patient Time: Total time spent is greater than 50% in coordination of care (as documented) at patient's floor/unit and/or counseling patient:
[2021-02-20] MEDS ORDERED: FOLIC ACID 1 MG TABLET PO SCH (09:00)
--- NOTE | 2021-02-20 10:03 | Discharge Summary ---
Discharge Provider Provider Patient information: Note initiated : 02/20/21 at 10:02 am Service Date, if different from initiated Date: [] Patient: Selwyn Gasca 70 y/o M admitted on 02/18/21 for elevated creatinine, blocked catheter. Chief Complaint: [] Date of admission: 02/18/21 19:55 Discharge date: 02/20/21 Primary care physician: Avelino Bautista Consults: 02/18/21 Consult to Physician [CONS] Stat Comment: Consulting Provider: Basim Benton Reason For Exam: Physician to Consult Consult to Physician [CONS] Stat Comment: Consulting Provider: Dwight Grider Reason For Exam: Physician to Consult Consult to Physician [CONS] Stat Comment: Consulting Provider: Sundeep Soliman Reason For Exam: Physician to Consult Discharge Meds Discharge Medications Home Medications apixaban 5 mg PO BID 02/18/21 [History Confirmed 02/18/21 Last Taken Unknown] calcium acetate 1,334 mg PO TID 02/18/21 [History Confirmed 02/18/21 Last Taken Unknown] levothyroxine 100 mcg PO QDAY 02/18/21 [History Confirmed 02/18/21 Last Taken Unknown] methocarbamol 500 mg PO Q6HP PRN 02/18/21 [History Confirmed 02/18/21 Last Taken Unknown] sodium bicarbonate 1,300 mg PO BID 02/18/21 [History Confirmed 02/18/21 Last Taken Unknown] COURSE Hospital Course Hospital course: Interval history: Patient sent in from [place] for urinary obstruction. Sounds like he had a clotted off Low catheter and subsequent required urostomy tubes which fell out a few days ago resulting in clotted Low catheter again and urinary tension at which time he came back to the ED and was transferred to [facility] with Dr. Benton placed a Low catheter with good urine output. See Dr. Benton's note for details of this history. He was also seen at [facility] by the vulcanizing press operator for creatinine that has been elevated around 9 for some time he has anemia has been relatively stable. The last hemoglobin is 8.0 on February 11. 7.2 today. He does have gross hematuria. 02/19 No overnight event or new complaints. Patient was recently diagnosed with hypothyroidism at [place] and started on 100 mcg of levothyroxine. 02/20 Doing well. No new pains or complaints. Creatinine slightly down. A: *Obstructive uropathy and b/l hydronephrosis: 2/2 clots, recent nephrostomy tube fell out -BPH with subsequent prostate trauma *Gross hematuria with blood clots: was on apixaban -improved *Blood loss (mild) anemia from above plus likely chronic component from renal failure: -Anemia work-up at [facility] indicates anemia of chronic disease -relatively stable, was 8 February 11, now 7.2 -good response from 1 unit PRBC (02/18) *Renal Failure: 2/2 above -Cr *PAF: currently in sinus valentino -on dilt/bb. was on apixaban that has been held for above *HTN: *Hypothyroidism: recently diagnosed at [facility] and started on levothyroxine 100mcg * Discharge diagnosis: Obstructive uropathy gross hematuria with acute blood loss anemia renal opal Time Spent with Patient Time attestation: Total time spent providing and/or coordinating discharge services: Time spent: Greater than 30 minutes EXAM Constitutional Vitals: Temp Pulse Resp BP Pulse Ox 98.1 F 55 L 18 123/68 94 02/20/21 08:00 02/20/21 08:00 02/20/21 08:00 02/20/21 08:00 02/20/21 08:00 Discharge Data Data Completed and Pending Labs on day of discharge: Labs from last 24 hours 02/20/21 02/20/21 02/20/21 06:21 06:21 06:20 WBC 7.9 RBC 2.50 L Hgb 8.0 L Hct 26.3 L MCV 105.2 H MCH 32.0 MCHC 30.4 L RDW 15.4 H Plt Count 301 MPV 8.7 Neut % (Auto) 68.6 Lymph % (Auto) 6.0 L [place] % (Auto) 9.4 Eos % (Auto) 15.1 H Baso % (Auto) 0.9 Lymph # (Auto) 0.48 L [place] # (Auto) 0.75 Eos # (Auto) 1.20 H Baso # (Auto) 0.07 Absolute Neutrophils 5.44 Sodium 137 Potassium 5.1 Chloride 104 Carbon Dioxide 18 L Anion Gap 15.0 BUN 102 H* Creatinine 8.0 H* GFR Calculation 6 Glucose 74 Calcium 5.9 L* Phosphorus 7.1 H* Total Bilirubin 0.2 AST 13 ALT 12 Alkaline Phosphatase 43 Total Protein 5.3 L Albumin 2.9 L Globulin 2.4 Albumin/Globulin Ratio 1.2 Folate 02/19/21 09:10 WBC RBC Hgb Hct MCV MCH MCHC RDW Plt Count MPV Neut % (Auto) Lymph % (Auto) [place] % (Auto) Eos % (Auto) Baso % (Auto) Lymph # (Auto) [place] # (Auto) Eos # (Auto) Baso # (Auto) Absolute Neutrophils Sodium Potassium Chloride Carbon Dioxide Anion Gap BUN Creatinine GFR Calculation Glucose Calcium Phosphorus Total Bilirubin AST ALT Alkaline Phosphatase Total Protein Albumin Globulin Albumin/Globulin Ratio Folate 4.4 Discharge Plan Patient/Caregiver Discharge Instructions Activity: increase activity as tolerated Diet: Regular Diet Instructions: Acute Kidney Injury (GEN), Low Catheter Placement and Care (GEN) Activity Restrictions/Additional Instructions: Monitor your heart rate twice daily and bring log to PCP or six sigma black trainer. Your metoprolol and diltiazem were stopped because of bradycardia and still remained in 50's after medications stopped. This discharge packet is provided to you to help keep you informed about your care. We want to ensure you get everything you need when you go home. You will also be receiving a call from us in a few days to follow up with you and see how you are doing since your discharge. This gives us a chance to listen to any concerns you maybe experiencing since you were discharged or any additional needs you may have, as well as providing us feedback on your care experience. We strive to always provide excellent care and thank you for your feedback and for choosing [facility]. Prescriptions: Continued sodium bicarbonate 650 mg Tablet 1,300 mg PO BID RF: 0 apixaban 5 mg Tablet 5 mg PO BID RF: 0 calcium acetate 667 mg Tablet 1,334 mg PO TID RF: 0 methocarbamol 500 mg Tablet 500 mg PO Q6HP PRN (Reason: Muscle Spasm) RF: 0 levothyroxine 100 mcg Tablet 100 mcg PO QDAY RF: 0 Discontinued diltiazem HCl 240 mg Capsule,Extended Release 24 Hr 240 mg PO QAM RF: 0 metoprolol succinate 100 mg Tablet Extended Release 24 Hr 100 mg PO QDAY RF: 0 ciprofloxacin HCl [Cipro] 250 mg Tablet 250 mg PO DAILY RF: 0 Follow Up Plan Follow up with: Sundeep Soliman MD [Physician] - 03/13/21 9:15 am Avelino Bautista MD [Primary Care Provider] - 03/18/21 11:30 am Basim Benton MD [Physician] - 03/04/21 3:00 pm Patient Disposition: Home, Self-Care Prognosis: Undetermined Overall status at discharge: patient is progressing back to baseline Discharge Orders: Discharge Order (Routine); Ordered 02/20/21 [facility] Deep Vein Thrombosis/Pulmonary Embolism Present on Admission: No
--- NOTE | 2021-02-20 10:41 | Cat Scan Report ---
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 TECHNIQUE: IV and oral contrast were withheld per standard protocol. .625mm helical slices were obtained from the diaphragm through the subtrochanteric regions. Following reconstruction, 2.5 mm sagittal, coronal, and axial reformations were processed. Exam was reviewed in bone, soft tissue, and lung windows/algorithm. The exam was performed using radiation dose optimization techniques including, but not limited to, automated exposure control, adjustment of the mA and/or kV according to patient size and use of iterative reconstruction technique. FINDINGS: Lung bases show no abnormality-no effusion. The visualized heart is normal. Abdominal images show the noncontrasted liver, gallbladder and bile ducts, pancreas, spleen, both adrenal glands and aorta to be normal in size, configuration and attenuation without focal lesion. There is mild edema throughout the mesentery and retroperitoneal fat is likely related to postobstructive renal failure this is new from previous exam. There is no free air or adenopathy. Pelvic images show marked, yet stable, prostate enlargement: 6.5 x 6.7 cm. Low catheter is properly positioned within the urinary bladder which is now decompressed. Bilateral hydronephrosis hydroureter has improved mechanically following Low catheter decompression. There is moderate residual bilateral hydronephrosis and mild dilatation of the proximal ureters. Both noncontrasted kidneys are otherwise normal. The stomach, small and large bowel are unremarkable. A 7 cm right inguinal hernia, containing mesenteric fat, is again seen. Bone windows show no osseous abnormality. At L5-S1 broad disc spur complex results in mild central canal and moderate bilateral IV foraminal narrowing IMPRESSION: 1. Low catheter in satisfactorily positioned in the urinary bladder which is now decompressed. Bilateral hydronephrosis has improved dramatically since the comparison precatheterization CT one month prior. There is now only moderate bilateral hydronephrosis and dilatation of the proximal ureters. Marked prostate enlargement seen-as before. 2. Mild edema in the retroperitoneum and mesentery may be related to postobstructive renal failure. This is new from the prior exam. 3. 7 cm right inguinal hernia containing only mesenteric fat. Interpreted and Authenticated by: Ishaan Pascal 02/20/21
== END 2021-02-20 13:45 | disposition home or self-care (01) | DRG 694 ==
LOC: ED 14:10 → ICU 19:54
PROVIDERS: ADMIT Internal Medicine; ATTEND Internal Medicine